=== PATIENT | female | born 1965 | race Caucasian/White ===

== ENCOUNTER 2022-05-21 16:55 | Emergency (ER) | payer OTHER ==
[2022-05-21] MEDS ORDERED: Diphtheria,Pertussis(Acell),Tetanus Vaccine 0.5 ML Syringe IM ONE (19:00)
[2022-05-21] MEDS ORDERED: Acetaminophen/HYDROcodone 325-7.5 MG Tab ONE ×2 (19:00→20:15)
[2022-05-21] MEDS ORDERED: Lidocaine 1% 20 ML MDV ONE (19:00)
== END 2022-05-21 21:12 | disposition home or self-care (01) ==
LOC: JP.ED 16:55
DX: S63.502A Unspecified sprain of left wrist, initial encounter (principal); S93.401A Sprain of unspecified ligament of right ankle, initial encounter
CPT/HCPCS: 12002; 73110-26-LT; 73110-LT; 73610-26-RT; 73610-RT; 90471; 99283-25; A9270-GY

== ENCOUNTER 2024-08-10 08:55 | Day surgery (SDC) | payer BC ==
[~2024-08-10 08:55] MED LIST: Midazolam 1 MG/ML 2 ML SDV ONE; Propofol 200 MG/20 ML SDV ONE; fentaNYL 100 MCG/2 ML SDV ONE
[2024-08-10 09:20] LABS: HEMATOCRIT 46.8 % (34.3-46.0); HEMOGLOBIN 15.4 g/dL (11.2-15.5); MEAN CORPUSCULAR HEMOGLOBIN 34.8 pg (31.6-35.5); MEAN CORPUSCULAR HGB CONC 32.9 g/dL (31.6-35.5); MEAN CORPUSCULAR VOLUME 105.6 fL (81.4-99.0); RED BLOOD CELL COUNT 4.43 M/uL (3.77-5.24); WHITE BLOOD CELL COUNT,WBC 6.3 K/uL (3.2-11.0)
[2024-08-10 09:40] LABS: ALANINE AMINOTRANSFERASE,ALT 24 U/L (12-78); ALKALINE PHOSPHATASE 93 U/L (46-116); ANION GAP 10.3 mmol/L (5.0-14.0); ASPARTATE AMNIOTRANSFERASE,AST 17 U/L (15-37); BILIRUBIN TOTAL 0.5 mg/dL (0.2-1.0); BLOOD UREA NITROGEN,BUN 15 mg/dL (7-18); CALCIUM 8.8 mg/dL (8.5-10.1); CARBON DIOXIDE,CO2 29 mmol/L (21-32); CHLORIDE,CL 101 mmol/L (100-108); CREATININE 1.2 mg/dL (0.6-1.0); ESTIMATED GFR 52 mL/min (>60); GLUCOSE RANDOM 100 mg/dL (74-106); POTASSIUM,K 4.3 mmol/L (3.6-5.2); PROTEIN TOTAL,TP 8.2 g/dL (6.4-8.2); SODIUM,NA 140 mmol/L (140-148)
[2024-08-10] MEDS: Lactated Ringers 1,000 ML IV SCH (10:36)
[2024-08-10] MEDS: Nozin Nasal Sanitizer NASBOTH SCH (10:36)
[2024-08-10] MEDS: ceFAZolin 2 GM in Premix Bag 1 BAG IV ONE (11:20)
[2024-08-10] MEDS ORDERED: Midazolam 1 MG/ML 2 ML SDV ONE (11:36)
[2024-08-10] MEDS ORDERED: Lactated Ringers 1,000 ML ONE (11:37)
[2024-08-10] MEDS ORDERED: Propofol 200 MG/20 ML SDV ONE (11:44)
[2024-08-10] MEDS ORDERED: Rocuronium 50 MG/5 ML Vial ONE (11:51)
[2024-08-10] MEDS ORDERED: Succinylcholine 200 MG/10 ML MDV ONE (11:51)
[2024-08-10] MEDS: Bupivacaine 0.5% 50 ML MDV ONE (12:05)
[2024-08-10] MEDS ORDERED: fentaNYL 100 MCG/2 ML SDV ONE ×4 (12:06→12:53)
[2024-08-10] MEDS ORDERED: Neostigmine Methylsulfate 10 MG/10 ML MDV ONE (12:08)
[2024-08-10] MEDS ORDERED: Ondansetron 4 MG/2 ML SDV ONE (12:08)
[2024-08-10] MEDS ORDERED: Glycopyrrolate 0.2 MG/ML 5 ML MDV ONE (12:08)
[2024-08-10] MEDS ORDERED: Dexamethasone 4 MG/ML SDV ONE (12:08)
[2024-08-10] MEDS ORDERED: Labetalol 20 MG/4 ML Syringe ONE (12:46)
[2024-08-10] MEDS ORDERED: Acetaminophen/HYDROcodone 325-5 MG Tab PO PRN (13:03)
[2024-08-10] MEDS ORDERED: Magnesium Hydroxide 400 MG/5 ML Susp 30 ML Cup PO PRN (13:03)
[2024-08-10] MEDS ORDERED: traZODone 50 MG Tab PO PRN (13:13)
[2024-08-10] MEDS: fentaNYL 50 MCG/ML SDV IVPUSH PRN (13:54)
[2024-08-10] MEDS ORDERED: Ketorolac 30 MG/ML SDV IVPUSH SCH (14:00)
[2024-08-10] MEDS: Ketorolac 15 MG/ML SDV IVPUSH SCH (14:43)
[2024-08-10] MEDS: Acetaminophen 325 MG Tab PO SCH (14:45)
[2024-08-10] MEDS: oxyCODONE 5 MG Tab PO PRN (14:57)
[2024-08-10] MEDS: Sodium Chloride 0.9% 1,000 ML IV SCH (14:57)
[2024-08-10] MEDS ORDERED: traMADol 50 MG Tab PO PRN (15:40)
[2024-08-10] MEDS ORDERED: oxyCODONE 5 MG Tab PO PRN (15:42)
[2024-08-10] MEDS: oxyCODONE 5 MG Tab PO ONE (16:12)
[2024-08-10] MEDS: fentaNYL 50 MCG/ML SDV IVPUSH ONE (16:12)
[2024-08-10] MEDS: ceFAZolin 1 GM in Premix Bag 1 BAG IV SCH (17:43)
[2024-08-10] MEDS ORDERED: Calcium Carbonate 500 MG Tab.Chew PO PRN (20:12)
[2024-08-10] MEDS: Docusate Sodium 100 MG Cap PO SCH (20:53)
[2024-08-10] MEDS ORDERED: Nozin Nasal Sanitizer NASBOTH SCH (21:00)
[2024-08-11] MEDS: Ondansetron 4 MG/2 ML SDV IVPUSH PRN (10:56)
[2024-08-11] MEDS: hydrOXYzine HCl 25 MG Tab PO ONE (13:16)
[2024-08-11] MEDS: Metoclopramide 10 MG Tab PO PRN (14:21)
== END 2024-08-11 16:45 | disposition home or self-care (01) ==
LOC: JP.SDS 08:55 → JP.MS 13:03 → JP.SDS 08-11 16:45
PROVIDERS: ATTEND Specialist
DX: M17.12 Unilateral primary osteoarthritis, left knee (principal); Z88.0 Allergy status to penicillin; Z88.5 Allergy status to narcotic agent
CPT/HCPCS: 01400-QZ; 36415; 73560-26-LT; 73560-LT; 80053; 85027; 97110-GP; 97116-GP; 97161-GP; 97530-GP; A9270-GY; C1713; J0330; J0665; J0689; J0690; J1100; J1596; J1885; J1920; J2250; J2405; J2704; J2710; J3010; J3490; J7030; J7120